=== PATIENT | male | born 1985 | race African-American/Black ===

== ENCOUNTER 2017-12-14 21:34 | Emergency (ER) | payer BC, MEDICAID ==
[~2017-12-14] VITALS: Ht 182.9 cm; Wt 85.0 kg
[2017-12-14 22:09] VITALS: BP 126/60; PULSE 56; RESP 20; TEMP 98.1; O2SAT 96
[2017-12-15] MEDS ORDERED: ROBA500T PO (00:13)
[2017-12-15] MEDS ORDERED: IBUP-232 PO (00:13)
--- NOTE | 2017-12-15 00:13 | PD ---
HPI Chief Complaint: Back/ Neck Pain or Injury Time Seen by Provider: 23:30 Travel History International Travel<30 days: No Contact w/Intl Traveler<30days: No Traveled to known affect area: No History of Present Illness HPI 32-year-old male complains of back spasming type pain for 3-4 days. Similar episode occurred once prior. He reports lifting boxes at work fairly often he believes it may be related. He tried Tylenol which has not been helpful. He does not recall a specific incident leading to a sudden onset pain. No bowel bladder changes. No history diabetes and no modulation. No history of cancer. Severity moderate. No numbness or weakness in the lower extremities. No fever. PFSH Past Medical History Medical History: Denies Significant Hx Diminished Hearing: No Immunizations Current: Yes Past Surgical History Surgical History: No Previous Surgery Social History Alcohol Use: Yes (OCC SOCIAL) Tobacco Use: No Substance Use: No Allergies-Medications (Allergen,Severity, Reaction): Coded Allergies: No Known Allergies (Unverified Adverse Reaction, Unknown, 12/14/17) Reported Meds & Prescriptions Reported Meds & Active Scripts Active Robaxin (Methocarbamol) 500 Mg Tab 1,000 Mg PO TID Ibuprofen 600 Mg Tab 600 Mg PO Q8HR PRN Review of Systems General / Constitutional: No: Fever Eyes: No: Blurred Vision Neurologic: No: Weakness, Dizziness, Focal Abnormalities, Coordination Problem , Sensory Disturbance Physical Exam Narrative GENERAL: 32-year-old male well-nourished well-developed pleasant Vital Signs Date Time Temp Pulse Resp B/P (MAP) Pulse Ox O2 Delivery O2 Flow Rate FiO2 12/14/17 22:09 98.1 56 20 126/60 (82) 96 SKIN: Warm and dry. HEAD: Normocephalic. EYES: No scleral icterus. No injection or drainage. NECK: Supple, trachea midline. No JVD or lymphadenopathy. CARDIOVASCULAR: Regular rate and rhythm without murmurs, gallops, or rubs. RESPIRATORY: Breath sounds equal bilaterally. No accessory muscle use. GASTROINTESTINAL: Abdomen soft, non-tender, nondistended. MUSCULOSKELETAL: No cyanosis, or edema. Minimal tenderness overlying the parathoracic erector spinae musculature. There is no mass or cellulitis or focal spinal tenderness. BACK: Nontender without obvious deformity. No CVA tenderness. Data Data Last Documented VS Vital Signs Date Time Temp Pulse Resp B/P (MAP) Pulse Ox O2 Delivery O2 Flow Rate FiO2 12/14/17 22:09 98.1 56 20 126/60 (82) 96 Orders Orders Acetamin-Hydrocod 325-5 Mg ([place] 5-325 (12/15/17 00:15) Ed Discharge Order (12/15/17 00:11) MDM Medical Decision Making Medical Screen Exam Complete: Yes Emergency Medical Condition: Yes Medical Record Reviewed: Yes Differential Diagnosis Myofascial strain, paraspinal hematoma, vertebral body fracture, sciatica Narrative Course Pain control here. Scripts as below. Work note provided Diagnosis Primary Impression: Thoracic myofascial strain Qualified Codes: S29.019A - Strain of muscle and tendon of unspecified wall of thorax, initial encounter Referrals: Primary Care Physician call for appointment Med/Other Pt SpecificInfo: Prescription(s) given Scripts Methocarbamol (Robaxin) 500 Mg Tab 1000 MG PO TID for Muscle Spasm, #20 TAB 0 Refills Prov: Vik Sharma MD 12/15/17 Ibuprofen (Ibuprofen) 600 Mg Tab 600 MG PO Q8HR Y for PAIN, #20 TAB 0 Refills Prov: Vik Sharma MD 12/15/17 Disposition: 01 DISCHARGE HOME Condition: Stable Vik Sharma MD Dec 15, 2017 00:13
[2017-12-15] MEDS ORDERED: ACETAMINOPHEN/HYDROcodone 325 MG/5 MG TAB PO ONE (00:15)
== END 2017-12-15 00:40 | disposition home or self-care (01) ==
LOC: NEPD 21:34
DX: S29.019A Strain of muscle and tendon of unspecified wall of thorax, initial encounter (principal); X58.XXXA Exposure to other specified factors, initial encounter
CPT/HCPCS: 99283